=== PATIENT | female | born 1980 | race Asian ===

== ENCOUNTER 2021-05-13 13:04 | Outpatient (CLI) | payer BC ==
[2021-05-14 17:10] LABS: SARS-CoV-2 PCR by NAA Not Detected (NotDetected)
== END 2021-05-13 13:05 | disposition home or self-care (01) ==
LOC: CSHLAB 13:04
PROVIDERS: ATTEND Family Medicine
DX: Z20.822 Contact with and (suspected) exposure to COVID-19 (principal); R06.00 Dyspnea, unspecified
CPT/HCPCS: U0003; U0005

== ENCOUNTER 2021-05-17 14:30 | Outpatient (CLI) | payer BC | END 2021-05-17 14:31 | disposition home or self-care (01) | LOC: CSHCP 14:30 | PROVIDERS: ATTEND Family Medicine | DX: R06.00 Dyspnea, unspecified (principal) | CPT/HCPCS: 94010; 94726; 94729; 94760 ==

== ENCOUNTER 2022-06-29 11:36 | Outpatient (CLI) | payer BC | END 2022-06-29 11:37 | disposition home or self-care (01) | LOC: CSHMAMMO 11:36 | PROVIDERS: ATTEND Family Medicine | DX: Z12.31 Encounter for screening mammogram for malignant neoplasm of breast (principal) | CPT/HCPCS: 77063; 77067 ==

== ENCOUNTER 2024-05-06 13:07 | Outpatient (CLI) | payer BC | END 2024-05-06 13:08 | disposition home or self-care (01) | LOC: CSHMAMMO 13:07 | PROVIDERS: ATTEND Family Medicine | DX: Z12.31 Encounter for screening mammogram for malignant neoplasm of breast (principal) | CPT/HCPCS: 77063; 77067 ==